=== PATIENT | female | born 1975 | race Caucasian/White ===

== ENCOUNTER 2017-01-05 09:18 | Emergency (ER) | payer SELFPAY ==
[~2017-01-05] VITALS: Ht 157.5 cm; Wt 71.0 kg
[2017-01-05 09:26] VITALS: TEMP 36.5; Ht 157.5 cm; Wt 71.0 kg
[2017-01-05] MEDS ORDERED: TRAM-10 PO (09:28)
[2017-01-05] MEDS ORDERED: VENL150T33 PO ×2 (09:28→11:38)
--- NOTE | 2017-01-05 09:46 | EMERGENCY ROOM VISIT NOTE ---
ED Visit Note First contact with patient: 09:28 CHIEF COMPLAINT: Suture removal This patient returns to the ED today for removal of sutures that were placed 9 days ago. There has been no redness, foul odor, or drainage from the wound. The patient feels like the laceration is healing well. The patient does note hitting her hand on a metal object while working yesterday, and reports increased swelling and pain since that time. REVIEW OF SYSTEMS: Head: No headache, injury or neck pain. Skin: No rash, new lesions, or masses. General: No fever or chills, fatigue, loss of appetite , or significant recent weight gain or loss. PMH: The patient is healthy; there is no significant medical or surgical history. SOCIAL HISTORY: Patient lives at home. PHYSICAL EXAM: Vital Signs: Reviewed Nurse's notes. There is a sutured wound on the left 2nd finger with no signs of infection. There is mild swelling and tenderness, but no erythema or drainage. EMERGENCY DEPARTMENT COURSE: The sutures were removed easily and there was no separation of the wound edges. There was one area along the laceration that appeared contused with some ecchymosis. During suture removal, patient was extremely uncomfortable, screaming and swearing in pain. Patient was given an ice pack and ibuprofen, and an x-ray was done of the finger to ensure no additional injury, x-ray is negative. Patient reports improved pain after interventions and suture removal. Patient's finger was placed in a metal splint for protection and she was encouraged to wear the splint when she is working to help protect the finger from being hit, as she seems to have a very active job. Patient verbalized understanding of all discharge instructions and plan, stable at time of discharge. Current/Historical Medications Scheduled Venlafaxine Hcl (Venlafaxine Hcl Er), 150 MG PO DAILY Venlafaxine Hcl (Venlafaxine Hcl Er), 1 TAB PO DAILY Scheduled PRN Tramadol (Ultram), 50 MG PO Q8H PRN for Pain Allergies Coded Allergies: No Known Allergies (Unverified , 01/05/17) Vital Signs Date Time Temp Pulse Resp B/P (MAP) Pulse Ox O2 Delivery O2 Flow Rate FiO2 01/05/17 11:52 87 16 96 01/05/17 09:26 36.5 93 16 106/76 95 Medications Administered Medications (Trade) Dose Ordered Sig/Ann Route Start Time Stop Time Status Last Admin Dose Admin Ibuprofen (Motrin Tab) 800 mg NOW STAT PO 01/05/17 09:55 01/05/17 09:58 DC 01/05/17 10:09 800 MG Departure Information Impression Primary Impression: Encounter for removal of sutures Additional Impression: Contusion of finger, left Dispostion Home / Self-Care Condition GOOD Prescriptions Venlafaxine Hcl (VENLAFAXINE HCL ER) 150 Mg Tab 1 TAB PO DAILY for 14 Days, #14 TAB 0 Refills Prov: Terese Casas CRNP 01/05/17 Referrals No Doctor, Assigned (PCP) Patient Instructions ED Contusion Finger, ED Wound Check Sutr Remove No Infec, [facility] Additional Instructions Keep the wound clean and dry. Wash with soap and water, pat dry. You may apply a thin film of antibiotic ointment and a Band-Aid for the next few days until the wound is fully healed. Alternate ice and heat to your finger to help with swelling and pain. Where the splint on your finger for comfort and to help avoid additional injury to the finger well continues to heal. Follow-up with your PCP as needed for continued swelling or pain in her finger, or any other concerns. Problem Qualifiers Additional Impression: Contusion of finger, left Encounter type: subsequent encounter Finger: index finger Damage to nail status: without damage Qualified Codes: S60.022D - Contusion of left index finger without damage to nail, subsequent encounter
[2017-01-05] MEDS ORDERED: IBUPROFEN 800 MG TAB PO STA (09:55)
--- NOTE | 2017-01-05 10:29 | DIAGNOSTIC IMAGING REPORT ---
LEFT INDEX FINGER 3 VIEWS HISTORY: left 2nd finger swelling, eval fx COMPARISON: None. FINDINGS: There is no fracture or dislocation. Diffuse soft tissue swelling. No radiopaque foreign bodies. IMPRESSION: No fractures. Diffuse soft tissue swelling. Electronically signed by: Kwame Khan M.D. 01/05/2017 10:28 AM Dictated Date/Time: 01/05/2017 10:27 AM
[2017-01-05 11:52] VITALS: BP 109/72; PULSE 87; O2SAT 96
== END 2017-01-05 11:55 | disposition home or self-care (01) ==
LOC: C.EDB 09:21
DX: S61.211D Laceration without foreign body of left index finger without damage to nail, subsequent encounter (principal); W45.8XXD Other foreign body or object entering through skin, subsequent encounter; Z48.02 Encounter for removal of sutures; S60.022A Contusion of left index finger without damage to nail, initial encounter; W22.8XXA Striking against or struck by other objects, initial encounter; Y92.89 Other specified places as the place of occurrence of the external cause; Y99.0 Civilian activity done for income or pay